=== PATIENT | female | born 1935 | race Two or more races ===

== ENCOUNTER → 2016-10-01 | Outpatient (CLI) | payer OTHER, MEDICAID ==
[~2016-10-01] VITALS: Ht 154.9 cm; Wt 60.3 kg
[~2016-10-01] MED LIST: ADENOSINE 51 MG in GIVE UN-DILUTED 0 ML IV ONE; ADENOSINE 90 MG/30 ML INJ IV ONE
== END | disposition home or self-care (01) ==
LOC: Rad HDHVI 13:04
PROVIDERS: ATTEND Internal Medicine Cardiovascular Disease
DX: I10 Essential (primary) hypertension (principal); E78.00 Pure hypercholesterolemia, unspecified; R42 Dizziness and giddiness; Z01.810 Encounter for preprocedural cardiovascular examination
CPT/HCPCS: 78452; 93005; 93306; 96374; 96375; A9500; J0153